=== PATIENT | female | born 1940 | race Caucasian/White ===

== ENCOUNTER 2024-03-26 08:38 | Day surgery (SDC) | payer MEDICARE, OTHER ==
[2024-03-26] MEDS: Lactated Ringers 1,000 ML IV SCH (09:06)
[2024-03-26] MEDS ORDERED: Lidocaine 2% 5 ML SDV ONE (09:13)
[2024-03-26] MEDS ORDERED: Propofol 200 MG/20 ML SDV ONE ×2 (09:13→09:36)
[2024-03-26] MEDS ORDERED: Lactated Ringers 1,000 ML IV SCH (10:15)
== END 2024-03-26 10:47 | disposition home or self-care (01) ==
LOC: MW.SDS 08:38
PROVIDERS: ATTEND Surgery
DX: K29.51 Unspecified chronic gastritis with bleeding (principal); K57.30 Diverticulosis of large intestine without perforation or abscess without bleeding; K44.9 Diaphragmatic hernia without obstruction or gangrene; I10 Essential (primary) hypertension; E78.00 Pure hypercholesterolemia, unspecified; E03.9 Hypothyroidism, unspecified; K21.9 Gastro-esophageal reflux disease without esophagitis; Z79.82 Long term (current) use of aspirin; Z79.890 Hormone replacement therapy; Z79.899 Other long term (current) drug therapy
CPT/HCPCS: 43239; 45378; 88305; J2704; J7120; 00813; 99100; J3490

== ENCOUNTER 2024-06-14 14:17 | Emergency (ER) | payer MEDICARE, OTHER ==
[2024-06-14] MEDS ORDERED: Sodium Chloride 0.9% 2.5 ML Syringe FLUSH PRN ×2 (14:55→16:46)
[2024-06-14] MEDS ORDERED: Sodium Chloride 0.9% 10 ML Syringe FLUSH PRN ×2 (14:55→16:46)
[2024-06-14 15:41] LABS: BASOPHILS ABSOLUTE AUTO 0.02 K/uL (0.00-0.20); BASOPHILS PERCENT AUTO 0.1 % (0.0-1.0); HEMATOCRIT 29.3 % (37.0-47.0); HEMOGLOBIN 9.8 g/dL (12.0-16.0); IMMATURE GRAN ABSOLUTE AUTO 0.06 K/uL (0.00-0.05); IMMATURE GRAN PERCENT AUTO 0.4 % (0.0-0.4); LYMPHOCYTES ABSOLUTE AUTO 0.46 K/uL (1.00-4.80); LYMPHOCYTES PERCENT AUTO 3.4 % (24.0-44.0); MEAN CORPUSCULAR HEMOGLOBIN 26.4 pg (28.0-32.0); MEAN CORPUSCULAR HGB CONC 33.4 g/dL (32.0-36.0); MEAN PLATELET VOLUME 9.4 fL (9.4-12.3); MONOCYTES ABSOLUTE AUTO 0.76 K/uL (0.00-0.80); MONOCYTES PERCENT AUTO 5.6 % (0.0-8.0); NEUTROPHILS ABSOLUTE AUTO 12.34 K/uL (1.80-7.70); NEUTROPHILS PERCENT AUTO 90.5 % (41.0-71.0); PLATELET COUNT,PLT 228 K/uL (150-400); RED BLOOD CELL COUNT 3.71 M/uL (4.10-5.30); WHITE BLOOD CELL COUNT,WBC 13.64 K/uL (3.9-11.3)
[2024-06-14 16:06] LABS: A/G RATIO 0.6 (0.9-1.6); ALBUMIN 2.5 g/dL (3.4-5.0); BILIRUBIN TOTAL 0.7 mg/dL (0.2-1.0); CALCIUM 8.8 mg/dL (8.5-10.1); CARBON DIOXIDE,CO2 27.9 mmol/L (21.0-32.0); CREATININE 1.7 mg/dL (0.6-1.0); EST CRCL DRUG DOSING (CG) 23.06 mL/min; POTASSIUM,K 3.7 mmol/L (3.5-5.1); PROTEIN TOTAL,TP 6.7 g/dL (6.4-8.2)
[2024-06-14] MEDS: Albuterol/Ipratropium 3.0-0.5 MG/3 ML Neb Soln NEB ONE (16:07)
[2024-06-14 16:12] LABS: LACTIC ACID 1.2 mmol/L (0.4-2.0)
[2024-06-14] MEDS: methylPREDNISolone Sodium Succinate 125 MG/2 ML SDV IVPUSH ONE (16:14)
[2024-06-14] MEDS: cefTRIAXone 1 GM in Sodium Chloride 0.9% 50 ML IV ONE (16:14)
[2024-06-14] MEDS: Sodium Chloride 0.9% 1,000 ML IV ONE (16:15)
[2024-06-14] MEDS ORDERED: Heparin Sodium 5,000 Units/ML Vial IVPUSH ONE (16:38)
[2024-06-14] MEDS: Aspirin 81 MG Tab.Chew PO ONE (17:35)
[2024-06-14] MEDS: Heparin Sodium 5,000 Units/ML Vial IVPUSH ONE (17:35)
[2024-06-14] MEDS: Heparin Sodium/0.45% NaCl 25,000 UNITS/250 ML BAG IV SCH (18:20)
[2024-06-14] MEDS: Azithromycin 500 MG in Sodium Chloride 0.9% 250 ML IV ONE (18:42)
== END 2024-06-14 19:45 ==
LOC: MW.ED 14:17 → MW.MS 16:43 → UNDOADMIN 16:43 → UNDODISIN 19:44
DX: I21.4 Non-ST elevation (NSTEMI) myocardial infarction (principal); J18.9 Pneumonia, unspecified organism; N17.9 Acute kidney failure, unspecified; R09.02 Hypoxemia; I10 Essential (primary) hypertension; K21.9 Gastro-esophageal reflux disease without esophagitis; M19.90 Unspecified osteoarthritis, unspecified site; E78.00 Pure hypercholesterolemia, unspecified; E03.9 Hypothyroidism, unspecified; Z79.82 Long term (current) use of aspirin; Z79.890 Hormone replacement therapy; Z79.899 Other long term (current) drug therapy; Z88.8 Allergy status to other drugs, medicaments and biological substances; Z75.8 Other problems related to medical facilities and other health care
CPT/HCPCS: 36415; 71045; 80053; 83605; 84484; 85025; 85730; 87040; 87428; 93005; 94640; A9270; J0456; J0696; J1644; J2919; J3490; J7030; J7050; J7620-GY